=== PATIENT | female | born 1940 | race Caucasian/White ===

== ENCOUNTER → 2021-06-30 | Outpatient (CLI) | payer MEDICARE, BC | LOC: EXRD 11:16 | DX: M81.0 Age-related osteoporosis without current pathological fracture (principal); M85.88 Other specified disorders of bone density and structure, other site | CPT/HCPCS: 77080 ==

== ENCOUNTER → 2021-07-15 | Outpatient (CLI) | payer MEDICARE, BC | LOC: EXRD 08:01 | DX: D69.6 Thrombocytopenia, unspecified (principal) | CPT/HCPCS: 76700 ==